=== PATIENT | female | born 1955 | race Hispanic/Latino ===

== ENCOUNTER 2023-12-10 11:37 | Observation (INO) | payer OTHER, MEDICARE ==
[2023-12-08 10:52] LABS: BASOPHILS # (AUTO) 0.02 K/uL (0.00-0.20); BASOPHILS % (AUTO) 0.4 % (0.0-5.0); EOSINOPHILS # (AUTO) 0.18 K/uL (0.00-0.70); EOSINOPHILS % (AUTO) 3.4 % (0.0-8.0); HEMATOCRIT 38.4 % (36-48); IMMATURE GRANULOCYTE ABSOLUTE 0.01 K/uL (0-1); LYMPHOCYTES # (AUTO) 1.4 K/uL (1.0-4.8); LYMPHOCYTES % (AUTO) 27.5 % (21.0-51.0); MEAN CORPUSCULAR HEMOGLOBIN 27.1 pg (27.0-33.0); MEAN CORPUSCULAR HGB CONC 31.8 g/dL (32.0-36.0); MEAN CORPUSCULAR VOLUME 85.1 fL (79-99); MONOCYTES # (AUTO) 0.5 K/uL (0.1-1.0); MONOCYTES % (AUTO) 8.8 % (3.0-13.0); NEUTROPHILS # (AUTO) 3.1 K/uL (1.8-7.7); NEUTROPHILS % (AUTO) 59.7 % (40.0-77.0); PLATELET COUNT (AUTO) 194 K/uL (130-400); RED BLOOD CELL COUNT(AUTO) 4.51 MIL/uL (4.00-5.50); WHITE BLOOD COUNT (AUTO) 5.2 K/uL (4.8-10.8)
[2023-12-08 11:12] LABS: CREATININE 0.7 mg/dL (0.5-1.0); POTASSIUM 4.4 mmol/L (3.5-5.1)
[2023-12-08 11:26] VITALS: BP 128/70; PULSE 61; RESP 18
[~2023-12-10] VITALS: Ht 154.9 cm; Wt 65.8 kg
[2023-12-10] VITALS (25 sets, daily range): BP systolic 95–146; BP diastolic 51–72; PULSE 58–81; RESP 10–20; O2SAT 97–98
[2023-12-10] MEDS: LACTATED RINGERS 1000ML 1,000 ML IV ONE
[~2023-12-10 11:37] MED LIST: ATOR40TA69 PO; LOSA100T59 PO; OMEP40CA21 PO; ZOLP10TA2 PO
[2023-12-10] MEDS ORDERED: DEXAMETHASONE SOD PHOSPHATE 10MG/ML 1ML VIAL ONE (15:09)
[2023-12-10] MEDS ORDERED: LIDOCAINE HCL MPF 1% 5ML VIAL ONE (15:09)
[2023-12-10] MEDS ORDERED: ONDANSETRON 4MG INJ ONE (15:10)
[2023-12-10] MEDS ORDERED: MIDAZOLAM HCL 1 MG/ML 2ML VIAL ONE (15:10)
[2023-12-10] MEDS ORDERED: GLYCOPYRROLATE 0.2 MG/ML 5 ML VIAL ONE (15:10)
[2023-12-10] MEDS ORDERED: NEOSTIGMINE METHYLSULFATE 1MG/ML IV ONE (15:10)
[2023-12-10] MEDS ORDERED: FENTANYL CITRATE PF 50 MCG/1 ML 5ML AMP IV ONE (15:10)
[2023-12-10] MEDS ORDERED: ROCURONIUM BROMIDE 10MG/1ML 5ML VL ONE (15:10)
[2023-12-10] MEDS ORDERED: PROPOFOL 10 MG/ML 20ML VIAL IV ONE (15:10)
[2023-12-10] MEDS: CEFAZOLIN SODIUM 2 GM VIAL ONE (15:20)
[2023-12-10] MEDS: BUPIVACAINE/PF 0.25% 30ML VIAL IJ ONE (15:35)
[2023-12-10] MEDS ORDERED: PROCHLORPERAZINE 10MG/2ML INJ IV PRN (17:30)
[2023-12-10] MEDS ORDERED: HYDROMORPHONE 1 MG INJ IVP PRN (17:30)
[2023-12-10] MEDS: LACTATED RINGERS 1000ML 1,000 ML IV SCH (17:30)
[2023-12-10] MEDS ORDERED: ONDANSETRON 4MG INJ IVP PRN (17:30)
[2023-12-10] MEDS: ACETAMINOPHEN 1,000 MG/100 ML VIAL IV ONE (18:17)
[2023-12-10] MEDS: KETOROLAC 30MG VIAL (30MG/ML) ONE (18:18)
[2023-12-10] MEDS ORDERED: NON-FORMULARY MEDICATION 1 EACH (Zolpidem Tartrate (Ambien) 10 MG) PO SCH (21:00)
[2023-12-10] MEDS: FAMOTIDINE 20MG VIAL IV SCH (21:12)
[2023-12-10] MEDS: ATORVASTATIN 40 MG TABLET PO SCH (21:13)
[2023-12-10] MEDS: ZOLPIDEM TARTRATE 5 MG TAB PO SCH (21:13)
[2023-12-10] MEDS: LOSARTAN 100 MG TABLET PO SCH (21:13)
[2023-12-10] MEDS: ENOXAPARIN SODIUM 30 MG/0.3 ML SQ SCH (21:14)
[2023-12-11 00:35] VITALS: BP 92/58; PULSE 71; RESP 18
[2023-12-11] MEDS: KETOROLAC 15MG/ML VIAL (15MG/ML) IV PRN (02:53)
[2023-12-11 04:00] VITALS: BP 111/61; PULSE 62; RESP 20
[2023-12-11 07:45] VITALS: O2SAT 96
[2023-12-11 08:00] VITALS: BP 112/57; PULSE 81; RESP 18
[2023-12-11] MEDS: PANTOPRAZOLE 40 MG TAB DR PO SCH (08:59)
[2023-12-11] MEDS ORDERED: NON-FORMULARY MEDICATION 1 EACH (Omeprazole 40 MG) PO SCH (09:00)
[2023-12-11] MEDS: HYDROCODONE/ACETAMINOPHEN 7.5/325 MG 15 ML UDCUP PO PRN (13:09)
== END 2023-12-11 14:30 | disposition home or self-care (01) ==
LOC: SUH 11:37 → DAH 11:37 → INTOOBSV 11:38 → SUH 11:38 → DAHIP 11:38 → 3AH 18:50
PROVIDERS: ADMIT Surgery; ATTEND Surgery
DX: K44.0 Diaphragmatic hernia with obstruction, without gangrene (principal); K21.9 Gastro-esophageal reflux disease without esophagitis; K22.70 Barrett's esophagus without dysplasia; B96.81 Helicobacter pylori [H. pylori] as the cause of diseases classified elsewhere; R73.03 Prediabetes; I10 Essential (primary) hypertension; D50.9 Iron deficiency anemia, unspecified; E78.00 Pure hypercholesterolemia, unspecified; Z79.899 Other long term (current) drug therapy
CPT/HCPCS: 43282; S2900; 36415; 43235; 80048; 82948; 85025; 86850; 86900; 86901; 93005; 96372; 96374; 96375; 96376; G0378; J1100; J1650; J1885; J2250; J2405; J2704; J2710; J3010; J3490; J7120; A4213; A4215; A4221; A4222; A4223; A4600; A4663; A4930; A6260; C1781; G0168; J0665; J0690